=== PATIENT | female | born 1940 | race Caucasian/White ===

== ENCOUNTER 2020-11-07 13:07 | Emergency (ER) | payer MEDICARE ==
[~2020-11-07] VITALS: Ht 157.5 cm; Wt 86.8 kg
[2020-11-07 13:14] VITALS: BP 112/45
--- NOTE | 2020-11-07 13:29 | PHYS DOC ---
Adult General Chief Complaint Chief Complaint: ALTERED MENTAL STATUS HPI HPI Pt is a 80F presenting with concerns due to change in mentation. She reports she awoke feeling tenderness in her lower abdominal region, however when talking to her daughter around noon today began forgetting what she wanted to tell her and forgetting the names of objects around the house that she were familiar to her. She reports some visual changes upon symptom onset, stating she was seeing sparkles in both visual anderson. Reports the visual field changes only lasted approximately 30 minutes. She reports she still feels slightly confused. Reports she has SOB at basline which isn't worse than usual, is on 2L of O2 prn at home and denies increased oxygen demand. Since symptoms began reports increased fatigue. Denies CP, N, V, D, bloody stools/urine. Admits back pain that's worsening in quality. Review of Systems Review of Systems Fourteen body systems of review of systems have been reviewed. See HPI for pertinent positives and negative responses, other omalley all other systems are negative, non-pertinent or non-contributory Physical Exam Physical Exam General: Appears well, non toxic, and comfortable Skin: Warm, dry. Normal for ethnicity. HEENT: Atraumatic. PERRLA. Moist mucous membranes. Neck: Trachea midline. Normal ROM. Respiratory: Normal WOB. CTAB w/o w/r/r. No tachypnea. Cardiovascular: Regular rate and rhythm. Normal peripheral perfusion. No edema. Abdomen: Soft. Non tender. No distension. Back: Normal ROM. Musculoskeletal: No swelling or deformity. Neuro: Alert and oriented x 4. MAEE. GCS 15. Normal FNF. Negative pronator drift. Normal heel to yousif. Normal Rebecca. CN II-XII intact. Normal strength and sensation. Normal speech. Psych: Normal affect and mood. EKG EKG [] Radiology/Procedures Radiology/Procedures EXAM: Chest, single view. HISTORY: Altered mental status. COMPARISON: None. FINDINGS: A frontal view of the chest is obtained. There is mild diffuse increased interstitial opacity. There is no consolidation, pleural effusion or pneumothorax. There is a prominent cardiac silhouette. IMPRESSION: Diffuse increased interstitial opacity due to suspected chronic interstitial change and superimposed lower lobe predominant atelectasis. Electronically signed by: Misa Zimmerman MD (11/07/2020 2:30 PM) [id number] Heart Score Risk Factors: Risk Factors: DM, Current or recent (<one month) smoker, HTN, HLP, family history of CAD, obesity. Risk Scores: Risk Factors: DM, Current or recent (<one month) smoker, HTN, HLP, family hi story of CAD, obesity. Course & Med Decision Making Course & Med Decision Making Pertinent Labs and Imaging studies reviewed. (See chart for details) [] Dragon Disclaimer Dragon Disclaimer This electronic medical record was generated, in whole or in part, using a voice recognition dictation system. Departure Departure: Impression: Primary Impression: UTI (urinary tract infection) Disposition: HOME / SELF CARE / HOMELESS Condition: STABLE Referrals: MISA URBINA MD (PCP) Patient Instructions: Urinary Tract Infection Additional Instructions: You were seen for a urinary tract infection. Please continue to take the antibiotics as prescribed. You should return to the ED if you develop worsening pain, fever, flank pain, or any other new or concerning symptoms. Follow up with primary care for further management for continuity of care. As discussed, you would benefit from physical therapy evaluation to assist with training you on how to use your prescribed assistive walking devices Scripts Ciprofloxacin Hcl (CIPROFLOXACIN HCL) 500 Mg Tablet 1 TAB PO BID for UTI for 5 Days, #10 TAB Prov: MARCELINO LUNA DO 11/07/20 MARCEILNO LUNA DO Nov 07, 2020 13:29
--- NOTE | 2020-11-07 14:16 | EKG ---
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
[2020-11-07 14:31] LABS: BILIRUBIN,URINE NEG (NEG); CLARITY,URINE CLEAR; COLOR,URINE YELLOW; GLUCOSE,URINE NEG (NEG); NITRITE,URINE NEG (NEG); UROBILINOGEN,URINE 0.2 mg/dL (0.2 mg/dL)
--- NOTE | 2020-11-07 14:33 | RAD ---
EXAM: Chest, single view. HISTORY: Altered mental status. COMPARISON: None. FINDINGS: A frontal view of the chest is obtained. There is mild diffuse increased interstitial opaci ty. There is no consolidation, pleural effusion or pneumothorax. There is a prominent cardiac silhoue tte. IMPRESSION: Diffuse increased interstitial opacity due to suspected chronic interstitial change and s uperimposed lower lobe predominant atelectasis. Electronically signed by: Misa Zimmerman MD (11/07/2020 2:30 PM) [id number]
[2020-11-07 14:34] LABS: RBC,URINE OCC /HPF (0-2); WBC,URINE OCC /HPF (0-4)
[2020-11-07 14:35] LABS: BACTERIA,URINE FEW /HPF (0-FEW); SQUAMOUS EPITHELIAL CELL,UR FEW /LPF
[2020-11-07] MEDS: IV RINGERS SOLUTION,LACTATED 1,000 ML IV ONE (14:41)
[2020-11-07 14:56] LABS: BASO # 0.1 x10^3/uL (0.0-0.2); BASO % 1 % (0-3); EOS # 0.1 x10^3/uL (0.0-0.7); EOS % 1 % (0-3); HEMATOCRIT 43.6 % (36.0-47.0); HEMOGLOBIN 13.9 g/dL (12.0-15.5); LYMPH # 1.4 x10^3/uL (1.0-4.8); LYMPH % 15 % (24-48); MEAN CORPUSCULAR HEMOGLOBIN 28 pg (25-35); MEAN CORPUSCULAR HGB CONC 32 g/dL (31-37); MEAN CORPUSCULAR VOLUME 89 fL (79-100); MONO % 10 % (0-9); NEUT # 7.2 x10^3uL (1.8-7.7); NEUT % 74 % (31-73); PLATELET COUNT 128 x10^3/uL (140-400); RED BLOOD COUNT 4.91 x10^6/uL (3.50-5.40); WHITE BLOOD COUNT 9.7 x10^3/uL (4.0-11.0)
[2020-11-07 15:06] LABS: CALCIUM 8.8 mg/dL (8.5-10.1); CREATININE 1.5 mg/dL (0.6-1.0); GFR 33.4; POTASSIUM 4.1 mmol/L (3.5-5.1)
[2020-11-07 15:19] LABS: ALBUMIN 3.4 g/dL (3.4-5.0); ALBUMIN/GLOBULIN RATIO 0.8 (1.0-1.7); TOTAL PROTEIN 7.5 g/dL (6.4-8.2)
[2020-11-07] MEDS ORDERED: CIPR500T2 PO (15:38)
[2020-11-07] MEDS ORDERED: CIPROFLOXACIN HCL 500 MG TABLET ONE (15:42)
[2020-11-07] MEDS: CIPROFLOXACIN HCL 500 MG TABLET PO ONE (15:45)
== END 2020-11-07 15:54 | disposition home or self-care (01) ==
LOC: ER 13:07
DX: N39.0 Urinary tract infection, site not specified (principal); R41.0 Disorientation, unspecified
CPT/HCPCS: 36415; 71045; 80053; 81001; 83605; 83880; 84484; 85025; 85610; 85730; 87086; 93005; 96360; 99284; J7120; 99285-25

== ENCOUNTER → 2020-11-13 | Outpatient (CLI) | payer MEDICARE ==
[2020-11-07 13:14] VITALS: BP 112/45
[~2020-11-13] MED LIST: CIPR500T2 PO
--- NOTE | 2020-11-13 16:04 | RAD ---
Exam: CT of abdomen and pelvis without contrast INDICATION: Left lower quadrant pain TECHNIQUE: Sequential axial images through the abdomen and pelvis obtained without IV contrast. [place] and coronal reformatted images were reconstructed from the axial data and reviewed. Exposure: One or more of the following in the visualized dose reduction techniques were utilized for this examination: 1. Automated exposure control 2. Adjustment of the MA and/or KV according to patient size 3. Use of iterative of reconstructive technique Comparisons: None FINDINGS: Heart size is at the upper limits of normal. Moderate coronary artery calcifications. Strandy opaciti es at dependent portion lungs likely representing atelectasis. No pleural effusion. Evaluation solid organs is limited secondary to noncontrast technique. Liver, spleen, pancreas and adrenals are unremarkable. Gallbladder surgically absent. No perinephric inflammation or hydronephrosis. There are numerous cystic lesions noted at the kidneys bilaterally which are incompletely characterized on noncontrast exam. No renal or ureteral calculi a re identified. Bladder is partially distended and appears thin-walled. Uterus is absent. No abnormal adnexal mass. There is stranding and edema surrounding the sigmoid colon with associated wall thickening. No adjace nt fluid collection or free air. Remainder of the large and small bowel are unremarkable. Appendix is nonidentified. No free intra-abdominal air or fluid. No obstruction. Abdominal aorta has a normal course and caliber. No enlarged intra-abdominal lymph nodes are identified. No suspicious osseous lesions or acute fractures. IMPRESSION: 1. Findings of diverticulitis at the sigmoid colon. No evidence for perforation or adjacent abscess. Colonoscopy posttreatment to ensure no underlying neoplasm is recommended. 2. Moderate coronary artery calcifications. 3. Several renal cystic lesions incompletely characterized on noncontrast exam. This can be better e valuated with nonemergent/outpatient renal protocol CT or MRI. Electronically signed by: Jose Harvey MD (11/13/2020 4:01 PM) [facility]
== END ==
LOC: CT 15:31
PROVIDERS: ATTEND Family Medicine
DX: K57.32 Diverticulitis of large intestine without perforation or abscess without bleeding (principal); N28.1 Cyst of kidney, acquired; I25.10 Atherosclerotic heart disease of native coronary artery without angina pectoris
CPT/HCPCS: 74176